=== PATIENT | male | born 1995 | race Caucasian/White ===

== ENCOUNTER 2021-10-15 11:22 | Outpatient (CLI) | payer OTHER, SELFPAY ==
[2021-10-17 09:42] LABS: H. PYLORI STOOL AG Negative (Negative)
== END 2021-10-15 23:59 | disposition home or self-care (01) ==
LOC: LAB 11:23
PROVIDERS: Referring Provider Nurse Practitioner Adult Health; Visit Provider Nurse Practitioner Adult Health
DX: K21.9 Gastro-esophageal reflux disease without esophagitis (principal); R07.9 Chest pain, unspecified; R14.0 Abdominal distension (gaseous)